=== PATIENT | male | born 1955 | race Caucasian/White ===

== ENCOUNTER 2022-08-26 17:47 | Emergency (ER) | payer MEDICARE ==
[~2022-08-26] VITALS: Ht 177.8 cm; Wt 103.0 kg
[2022-08-26] VITALS (26 sets, daily range): BP systolic 70–125; BP diastolic 45–69
[2022-08-26] MEDS ORDERED: LIPITOR10 M1 PO (18:45)
[2022-08-26] MEDS ORDERED: METOPROL TAR25 MG PO (18:45)
[2022-08-26] MEDS ORDERED: FLECAINIDE100 MG PO (18:45)
[2022-08-26] MEDS ORDERED: PROTONIX40 M2 PO (18:45)
[2022-08-26] MEDS ORDERED: TAMSULOSIN0.4 MG PO (18:46)
[2022-08-26] MEDS ORDERED: XARELTO10 MG PO (18:46)
[2022-08-26] MEDS ORDERED: PREDNISONE5 MG PO (18:46)
[2022-08-26] MEDS ORDERED: ALBUTEROL SUL0.083 % IN (18:46)
[2022-08-26] MEDS ORDERED: MONTELUKAST SOD10 MG PO (18:47)
[2022-08-26] MEDS ORDERED: ZYTIGA250 MG PO (18:47)
[2022-08-26] MEDS ORDERED: TRELEGY ELLIPTA1 AE1 (18:47)
[2022-08-26] MEDS ORDERED: ZPAK PO (20:17)
[2022-08-26] MEDS ORDERED: DEXAMETHASON6 MG PO (20:17)
[2022-08-26 21:50] LABS: BASO% 0.2 % (0-3); EOS% 0.4 % (0-8); HEMOGLOBIN 10.2 g/dl (14.0-18.0); IMMATURE GRANULOCYTES 0.2 % (0.0-5.0); LYMPH% 14.1 % (15-41); MEAN CELL VOLUME 90.4 fL CALC (80.0-100.0); MEAN CORPUSCULAR HGB 30.7 pG CALC (26.0-32.0); MONO% 8.5 % (2-13); NEUT# 3.69 thou/uL (1.82-7.42); NEUT% 76.6 % (42-76); RED BLOOD COUNT 3.32 mill/uL (4.70-6.10); RED CELL DISTRI WIDTH 14.4 % (11.5-15.5)
[2022-08-26 22:03] LABS: ALBUMIN 3.3 g/dL (3.2-5.0); ALKALINE PHOSPHATASE 77 u/l (38-126); ANION GAP 7 (6-22 (CALC)); BILIRUBIN, TOTAL 1.5 mg/dL (0.0-1.4); BUN 18 mg/dL (8-23); BUN/CREATININE RATIO 18 (12-20 (CALC)); CARBON DIOXIDE 23 mmol/l (22-30); CHLORIDE 105 mmol/l (95-108); GFR FOR AFR.AMER. > 60 ML/MIN (>=60 (CALC)); GFR OTHER RACES > 60 ML/MIN (>=60 (CALC)); POTASSIUM 3.5 mmol/l (3.5-5.1); SGOT/AST 27 u/l (19-48); SODIUM 132 mmol/l (137-146); TOTAL PROTEIN 5.7 g/dL (6.3-8.2)
[2022-08-26 22:37] LABS: URINE BLOOD DIPSTICK NEGATIVE (NEGATIVE); URINE COLOR YELLOW; URINE GLUCOSE - DIPSTICK NEGATIVE (NEGATIVE); URINE KETONE TRACE mg/dL (NEGATIVE); URINE LEUK ESTERASE NEGATIVE (NEGATIVE); URINE PH 5.5 (4.5-8.0); URINE PROTEIN - DIPSTICK NEGATIVE (NEG-TRACE); URINE SPECIFIC GRAVITY >=1.030; URINE UROBILINOGEN - DIPSTICK 0.2 E.U./dL (0.2)
[2022-08-26 22:38] LABS: URINE BILIRUBIN - DIPSTICK SMALL (NEGATIVE); URINE NITRITE - DIPSTICK NEGATIVE (Negative)
== END 2022-08-26 23:27 | disposition home or self-care (01) ==
LOC: ED 17:47
PROVIDERS: Family Medicine
DX: U07.1 COVID-19 (principal); R05.9 Cough, unspecified; R52 Pain, unspecified; R50.9 Fever, unspecified; J02.9 Acute pharyngitis, unspecified; E86.0 Dehydration; I10 Essential (primary) hypertension; I48.91 Unspecified atrial fibrillation; J44.9 Chronic obstructive pulmonary disease, unspecified; E78.5 Hyperlipidemia, unspecified; Z79.01 Long term (current) use of anticoagulants; Z79.899 Other long term (current) drug therapy